=== PATIENT | male | born 1950 | race Caucasian/White ===

== ENCOUNTER 2020-06-17 05:55 | Inpatient (IN) | payer MEDICARE ==
[~2020-06-17] VITALS: Ht 172.7 cm; Wt 52.9 kg
[~2020-06-17 05:55] MED LIST: ASPIRIN CHEWABL81 MG PO; AUGMENTIN 875-1 EACH PO
[2020-06-17 07:53] LABS: BASOPHIL 0.3 % (0-2); EOSINOPHIL 0.1 % (0-7); HCT 20.6 % (42.0-52.0); LYMPHOCYTE 4.4 % (15-48); MCH 29.1 pg (25.0-31.0); MCV 90.7 fL (78.0-100.0); MONOCYTE 5.5 % (0-12); MPV 11.2 fL (6.0-9.5); NEUTROPHIL 88.9 % (41-80); NRBC 0; PLT 289 K/uL (150-400); RBC 2.27 M/uL (4.70-6.00); RDW 14.7 % (11.5-14.0); WBC 17.1 K/uL (4.0-10.5)
[2020-06-17 07:59] LABS: HGB 6.6 g/dl (13.2-18.0); INR 1.06 (0.9-1.2); PROTHROMBIN TIME 13.1 SECONDS (11.4-13.6); PTT 35.3 SECONDS (22.2-34.7)
[2020-06-17 09:24] LABS: ALBUMIN 2.2 g/dL (3.4-5.0); BILIRUBIN - TOTAL 0.3 mg/dL (0.2-1.0); BUN/CREAT RATIO (CALC) 71.9 RATIO; CREATININE 0.96 mg/dL (0.67-1.17); TOTAL PROTEIN 6.2 g/dL (6.4-8.2)
[2020-06-17] MEDS ORDERED: CARAFATE1 GM PO (12:45)
[2020-06-17] MEDS ORDERED: OS-CAL500 MG PO (12:46)
[2020-06-17] MEDS ORDERED: LIPITOR40 MG PO (12:51)
[2020-06-17] MEDS ORDERED: MAG-OXIDE 400M400 MG PO (12:52)
[2020-06-17] MEDS ORDERED: PROAIR DIGIHAL90 MCG INH (12:52)
[2020-06-17] MEDS ORDERED: FLOMAX0.4 MG PO (12:53)
[2020-06-17] MEDS ORDERED: TRAMADOL HCL50 MG GT (12:55)
[2020-06-17] MEDS ORDERED: TRULICITY0.75 MG/0. SC (12:56)
[2020-06-17] MEDS ORDERED: VIMPAT100 MG GT (12:57)
[2020-06-17] MEDS ORDERED: METOPROLOL TART75 MG GT (12:59)
[2020-06-17] MEDS ORDERED: [UNRECOGNIZED DRUG - OTHER] GT (13:00)
[2020-06-17] MEDS ORDERED: 8 HOUR650 MG PO (13:01)
[2020-06-17 14:14] LABS: LACTIC ACID 1.5 mmol/L (0.4-1.9)
--- NOTE | 2020-06-17 15:52 | NUR ---
06/17/20 Mr. Goldberg was admitted from [facility]. Hansel Donnell reports that [facility] will accept back as skilled. - Nursing reported patient to have [id number] to go to a [facility] [place]. All 4 [facility] were contacted. They either have a waiting list or are not accepting patients due to COVID. Mr. Fuller was provided with the names, telephone numbers, and admission process to get on the waiting list at the [facility]. (The or POA must initiate the application process). - Mr. Goldberg was offered other options. He said he would return to [facility]. - Mr. Goldberg denies mistreatment. He did relay an concern and said someone at [facility] addressed his concern the following day. - Report given to MANJIT Argueta RN.
[2020-06-18 08:34] LABS: HCT 21.8 % (42.0-52.0); MCH 29.9 pg (25.0-31.0); MCHC 31.7 g/dL (32.0-36.0); MCV 94.4 fL (78.0-100.0); MPV 10.7 fL (6.0-9.5); RBC 2.31 M/uL (4.70-6.00); RDW 15.5 % (11.5-14.0); WBC 11.4 K/uL (4.0-10.5)
[2020-06-18 08:36] LABS: HGB 6.9 g/dl (13.2-18.0)
[2020-06-18 09:25] LABS: CREATININE 0.85 mg/dL (0.67-1.17); POTASSIUM 3.7 mmol/L (3.5-5.1)
--- NOTE | 2020-06-18 12:09 | NUR ---
06/18/20 Mr. Sutherland will be trnasferred to [facility]. Jamar Jacobo at [facility] was informed.
--- NOTE | 2020-06-18 16:22 | NUR ---
PT SENT TO [facility] WITH BLOOD TRANSFUSING AT 250ML/HR [facility] 20G RFA. PT LEFT FOR [facility] AT 1600.
== END 2020-06-18 16:20 | disposition other institution (70) | DRG 378 ==
LOC: FER 05:55 → FTCU 09:33
PROVIDERS: Emergency Medicine; ADMIT Hospitalist
PROC: 30233N1 Transfusion of Nonautologous Red Blood Cells into Peripheral Vein, Percutaneous Approach (ICD-10-PCS; principal; 2020-06-17)
PROC: 30233N1 Transfusion of Nonautologous Red Blood Cells into Peripheral Vein, Percutaneous Approach (ICD-10-PCS; 2020-06-18)
DX: K92.2 Gastrointestinal hemorrhage, unspecified (principal); D62 Acute posthemorrhagic anemia; I25.10 Atherosclerotic heart disease of native coronary artery without angina pectoris; I25.2 Old myocardial infarction; I10 Essential (primary) hypertension; E11.9 Type 2 diabetes mellitus without complications; I73.9 Peripheral vascular disease, unspecified; I12.9 Hypertensive chronic kidney disease with stage 1 through stage 4 chronic kidney disease, or unspecified chronic kidney disease; N40.0 Benign prostatic hyperplasia without lower urinary tract symptoms; Z86.73 Personal history of transient ischemic attack (TIA), and cerebral infarction without residual deficits; Z20.822 Contact with and (suspected) exposure to COVID-19; N18.2 Chronic kidney disease, stage 2 (mild); L89.151 Pressure ulcer of sacral region, stage 1
CPT/HCPCS: 36415; 36430; 80048; 80053; 83605; 85025; 85610; 85730; 86850; 86870; 86880; 86900; 86901; 86922; 93005; 97162; 97167; 97530-GP; 97535; C9113; J7030; J7040; P9016; U0002